=== PATIENT | male | born 1980 | race Caucasian/White ===

== ENCOUNTER 2018-05-24 05:27 | Emergency (ER) | payer SELFPAY ==
[2018-05-24] MEDS ORDERED: HYDROcodone/Acetaminophen 10/325 mg Tablet ONE (05:52)
[2018-05-24 06:15] LABS: #Basophils 0.1 thou/uL (0.0-0.2); #Eosinphils 0.2 thou/uL (0.0-0.7); #Lymphocytes 1.9 thou/uL (1.20-3.40); #Monocytes 1.8 thou/uL (0.11-0.59); #Neutrophils 14.3 thou/uL (1.40-6.50); %Basophils 0.7 % (0.0-1.0); %Eosinophils 0.9 % (0.0-10.0); %Lymphocytes 10.6 % (21.0-51.0); %Monocytes 9.6 % (0.0-10.0); %Neutrophils 78.2 % (42.0-75.0); Hemoglobin 15.6 g/dL (14.0-18.0); Mean Corpuscular HGB CONC 33.1 g/dL (32.0-36.0); Mean Corpuscular Hemoglobin 29.5 pg (27.0-31.0); Mean Platelet Volume 8.5 fL (7.4-10.4); Platelet Count 257 thou/uL (130-400); RBC Distribution Width 11.1 % (11.5-14.5); White Blood Cell (WBC) Count 18.2 thou/uL (4.8-10.8)
[2018-05-24 06:26] LABS: Acetaminophen Less than 6.0 mcg/mL (10.0-30.0); Alcohol Less than 10 mg/dL (Less than 10); Anion Gap 16 mmol/L (10-20); BUN (Urea Nitrogen) 15 mg/dL (8.9-20.6); Calc. Creatinine Clearance 0 mL/min (70-130); Calcium 10.1 mg/dL (7.8-10.44); Carbon Dioxide 23 mmol/L (22-29); Chloride 108 mmol/L (98-107); Estimated GFR-MDRD 73; Glucose 80 mg/dL (70-105); Potassium 3.7 mmol/L (3.5-5.1); Salicylate Less than 8.0 mg/dL (15.0-30.0); Sodium 143 mmol/L (136-145)
--- NOTE | 2018-05-24 07:59 | RAD ---
3 VIEWS RIGHT HAND: Date: 05/24/18 COMPARISON: None. HISTORY: Right hand injury with pain. FINDINGS: Three views of the right hand show no evidence of acute fracture or dislocation. Moderate dorsal soft tissue swelling is seen. No degenerative changes are seen. IMPRESSION: No evidence of acute osseous abnormality. POS: [facility]
--- NOTE | 2018-05-24 08:00 | RAD ---
TWO VIEWS RIGHT FOREARM: COMPARISON: None. HISTORY: Right forearm trauma with pain. FINDINGS: Three views right forearm show no evidence of acute fracture or dislocation. No degenerative changes are seen. Mild soft tissue swelling is present. IMPRESSION: Unremarkable exam. POS: [facility]
== END 2018-05-24 06:50 | disposition home or self-care (01) ==
LOC: MADERS 05:27
DX: S60.221A Contusion of right hand, initial encounter (principal); Y00.XXXA Assault by blunt object, initial encounter
CPT/HCPCS: 36415; 80048; 80307; 85025

== ENCOUNTER 2020-07-10 03:02 | Emergency (ER) | payer SELFPAY ==
[2020-07-10] MEDS ORDERED: HYDROmorphone 0.5 MG/0.5 ML SYRINGE ONE (03:48)
[2020-07-10 03:53] LABS: Bilirubin Negative (Negative); Blood, Urine Moderate (Negative); Glucose, Urine (Dipstick) Negative (Negative); Ketone, Urine Negative (Negative); Leukocyte Trace (Negative); Nitrite Negative (Negative); Protein, Urine (Dipstick) Negative (Neg-Trace); Urobilinogen 0.2 mg/dL (Less than 2)
[2020-07-10 03:55] LABS: Clarity Hazy (Clear)
[2020-07-10 04:01] LABS: Bacteria/HPF Rare-Few HPF (None Seen); Squamous Epithelial 0-3 HPF (0-3)
[2020-07-10] MEDS ORDERED: Sodium Chloride 0.9% 1,000 ML ONE (04:14)
[2020-07-10 04:18] LABS: #Basophils 0.2 thou/uL (0.0-0.2); #Eosinphils 0.6 thou/uL (0.0-0.7); #Lymphocytes 2.3 thou/uL (1.20-3.40); #Monocytes 0.9 thou/uL (0.11-0.59); #Neutrophils 6.2 thou/uL (1.40-6.50); %Basophils 1.7 % (0.0-1.0); %Eosinophils 6.1 % (0.0-10.0); %Lymphocytes 22.3 % (21.0-51.0); %Monocytes 8.8 % (0.0-10.0); Hemoglobin 15.6 g/dL (14.0-18.0); Mean Corpuscular HGB CONC 32.3 g/dL (32.0-36.0); Mean Corpuscular Hemoglobin 29.9 pg (27.0-31.0); Mean Corpuscular Volume 92.6 fL (78.0-98.0); Mean Platelet Volume 8.2 fL (7.4-10.4); Platelet Count 337 thou/uL (130-400); RBC Distribution Width 12.5 % (11.5-14.5); Red Blood Cell (RBC) Count 5.21 mill/uL (4.70-6.10); White Blood Cell (WBC) Count 10.2 thou/uL (4.8-10.8)
[2020-07-10 04:38] LABS: ALT (SGPT) 30 U/L (8-55); AST (SGOT) 18 U/L (5-34); Albumin 4.1 g/dL (3.5-5.0); Alkaline Phosphatase 82 U/L (40-110); Anion Gap 14 mmol/L (10-20); BUN (Urea Nitrogen) 12 mg/dL (8.9-20.6); Bilirubin, Total 0.2 mg/dL (0.2-1.2); Calc. Creatinine Clearance 0 mL/min (70-130); Calcium 8.9 mg/dL (7.8-10.44); Carbon Dioxide 24 mmol/L (22-29); Chloride 105 mmol/L (98-107); Estimated GFR-MDRD Greater than 90; Globulin 2.8 g/dL (2.4-3.5); Glucose 113 mg/dL (70-105); Lipase 31 U/L (8-78); Potassium 4.2 mmol/L (3.5-5.1); Protein, Total 6.9 g/dL (6.0-8.3); Sodium 139 mmol/L (136-145)
[2020-07-10] MEDS ORDERED: cefTRIAXone\\ROCEPHIN 1 GM VIAL ONE (05:29)
[2020-07-10] MEDS ORDERED: Sodium Chloride 0.9% 100 ML ONE (05:29)
--- NOTE | 2020-07-10 07:27 | CT ---
CT ABDOMEN AND PELVIS WITHOUT IV CONTRAST: Date: 07/10/2020 INDICATION: History of renal stones and right-sided abdominal pain for the last 24 hours. FINDINGS: No edelmira hydronephrosis is evident. There is a small, 2.0 mm, calculus at the right UVJ. There is a 4.3 mm stone involving the inferior pole of the left kidney. There is a 2.0 mm stone invol ving the mid left kidney. There is a small, sub-4.0 mm, subpleural pulmonary nodule within the latera l right middle lobe. Unopacified liver, gallbladder, pancreas, adrenal glands, and spleen appear within normal limits. There is a prominent amount of retained stool within the colon. There is a normal retrocecal appendix . Unopacified small bowel appear within normal limits. Bladder is partially decompressed. Rectum and perirectal soft tissues are unremarkable appearing. No acute osseous abnormality is evident. IMPRESSION: 1. 2.0 mm right UVJ stone without edelmira right-sided hydronephrosis. 2. Left nephrolithiasis. 3. Prominent amount of retained stool within the colon. 4. Sub-4.0 mm, subpleural pulmonary nodule within the right middle lobe. POS: [facility]
== END 2020-07-10 07:15 | disposition home or self-care (01) ==
LOC: MADERS 03:02
DX: N20.2 Calculus of kidney with calculus of ureter (principal); N39.0 Urinary tract infection, site not specified; F17.210 Nicotine dependence, cigarettes, uncomplicated
CPT/HCPCS: 36415; 74176; 80053; 81003; 81015; 83690; 85025; 87040; 96361; 96365; 96372; J0696; J1170; J3490; J7050